=== PATIENT | female | born 1985 | race Caucasian/White ===

== ENCOUNTER 2016-05-01 23:50 | Emergency (ER) | payer MEDICAID, SELFPAY ==
[2016-05-02] MEDS ORDERED: Sodium Chloride 0.9% 10 ML Syringe FLUSH PRN (00:18)
[2016-05-02] MEDS ORDERED: Lactated Ringers 1,000 ML IV ONE (00:18)
[2016-05-02] MEDS ORDERED: Metoclopramide 10 MG/2 ML SDV IVPUSH ONE (00:21)
[2016-05-02] MEDS ORDERED: Pantoprazole 40 MG Vial IVPUSH ONE (00:48)
[2016-05-02 02:25] VITALS: BP 123/82
--- NOTE | 2016-05-04 12:43 | ER ---
DATE SEEN: 05/01/2016 TIME SEEN: The patient was seen at 0030 hours. HISTORY OF PRESENT ILLNESS: This 30-year-old woman who is on disability for mental health, severe ADHD, and anxiety attacks, presents because she got anxious. She has frequent vomiting. She states she has had vomiting for the past 2 months (I wonder if she has cyclic vomiting). She has been followed by Dr. Kothari. She sees a specialist regarding her vomiting. She has also been on an excessive number of drugs and drugs have been slowly decreased. She has tried Lyrica for her fibromyalgia that "doesn't work". She notes that her fibromyalgia has gotten worse. In the past 2 months, she has been vomiting more off and on. She talked about having a hernia in her esophagus and also her stomach when she was 14 years old. She notes that the "Zofran doesn't do anything for nausea." Her history is fragmented, without continuity of train of thought. She does not do well with organizing her thoughts or even discussing her problems. She places a fair amount of blame on her fibromyalgia and "is not getting better". In order to resolve her upset stomach and fibromyalgia, she states she has been drinking alcohol. She notes yesterday she had 4 ounces of hard alcohol and 2 beers. This morning, she had 6 shots of alcohol to decrease her fibromyalgia. She also had been taking alcohol on and off 4 to 5 days per week in the last 2 weeks. She finds this is not helping her fibromyalgia, and now she is having difficulty eating because she is vomiting. She is not taking any medicine except for Zofran, and "the Zofran is not helping her." MEDICATIONS: 1. Venlafaxine for depression. 2. Gabapentin for pain and fibromyalgia. 3. Magnesium hydroxide. 4. Pepcid. ALLERGIES: Doxepin and ibuprofen. SOCIAL HISTORY: The patient is a smoker. The patient is not . The patient has bizarre clothing, composition. She had a total of 7 facial piercings that maker her fact look grotesque and bizarre. PHYSICAL EXAMINATION: HEENT: PERRLA intact. Pharynx without abnormality. NECK: Supple. LUNGS: Clear to auscultation. HEART: S1, S2. No murmur. ABDOMEN: Soft. No guarding. Has mild midepigastric abdominal discomfort. No back pain. EXTREMITIES: Without edema. Deep tendon reflexes normoactive in upper and lower extremities. NEUROLOGIC: Cranial nerves 2 through 12 intact and oriented x3. Gait appropriate. LABORATORY DATA: Today's white count is 12,200 with normal PMNs of 64, lymphs 26, monos 6, platelets 271,000, hemoglobin 15.6, the latter is elevated. Large occult blood is noted in the urine. Moderate mucus and few bacteria. Negative hCG. Negative drug screen test except for marijuana. The patient denies using synthetic marijuana and alcohol is less than 0.01. She was advised that the only way to manage her fibromyalgia was exercise. She has had physical therapy in the past, but has not been there because she has "been too sick for the last 2 months," but she recently started physical therapy a week ago. Also, she has been advised that her biorhythms have been disrupted because of her very inappropriate sleep pattern. She goes to bed at 3 o'clock in the morning and gets up at 7 or 8 in the morning when her significant other comes home. She spends time awake until noon and then goes back to bed during the afternoon. She is also encouraged to consider a rheumatology consultation regarding her fibromyalgia if she is not getting better. Follow up with her doctor in 1 week. No medications prescribed. ADDITIONAL FINDINGS: Blood in the urine; question if this is secondary to menses. Ketonuria is secondary to decreased p.o. calorie intake and also use of marijuana. It is not clear how much marijuana she is using, but marijuana can also cause gastric upset, irritation, and she is encouraged to desist from using marijuana and other drugs and also desist from such poor sleep pattern and improve her sleep hygiene by seeking different hours since she currently is sleeping at different hours. Get more sleep. The patient was seen at 0020 hours (midnight). /[id number] TIMOTHY/KISHOR HDZ
--- NOTE | 2016-05-15 03:49 | ER ---
DATE SEEN: 05/01/2016 ADDENDUM: DIAGNOSES: 1. Anxiety disorder. 2. Grotesque facial piercings. 3. Overweight. 4. Probable abdominal discomfort secondary to marijuana use upsetting her stomach. 5. Sleep dysfunction. 6. Fibromyalgia. 7. Microhematuria, etiology indeterminate. 8. Smoking disorder. /[id number] TIMOTHY/KYLERL
== END 2016-05-02 01:50 | disposition home or self-care (01) ==
LOC: FB.ED 23:50
DX: F41.9 Anxiety disorder, unspecified (principal); E66.3 Overweight; F12.90 Cannabis use, unspecified, uncomplicated; M79.7 Fibromyalgia; R31.29 Other microscopic hematuria; R10.9 Unspecified abdominal pain; F17.200 Nicotine dependence, unspecified, uncomplicated; Z88.6 Allergy status to analgesic agent; Z88.8 Allergy status to other drugs, medicaments and biological substances; Z79.899 Other long term (current) drug therapy
CPT/HCPCS: 36415; 80305; 81001; 81025; 85025; 96361; 96374; 96375; 99284; C9113; G0480; J2765; J7050; J7120

== ENCOUNTER 2017-07-06 07:49 | Day surgery (SDC) | payer MEDICAID, OTHER, SELFPAY ==
[~2017-07-06 07:49] MED LIST: Lactated Ringers 1,000 ML IV SCH; Sodium Chloride 0.9% 10 ML Syringe FLUSH PRN
[2017-07-06] MEDS ORDERED: Lactated Ringers 1,000 ML IV ONE (09:15)
[2017-07-06] MEDS ORDERED: Midazolam 1 MG/ML 2 ML SDV IV ONE (09:15)
[2017-07-06] MEDS ORDERED: Propofol 200 MG/20 ML SDV IV ONE (09:15)
--- NOTE | 2017-07-06 10:02 | PCM.OPNOTE ---
- General Post-Op/Procedure Note Date of Surgery/Procedure: 07/06/17 Operative Procedure(s): egd with bx. c scope with bx Findings: gastritis irregular z line normal colon rectal polyp Pre Op Diagnosis: nausea. diarrhea Post-Op Diagnosis: gastritis. irregular z line. normal colon. rectal polyp Anesthesia Technique: [facility] [place] Primary Surgeon: Augusto Esquivel Anesthesia Provider: Sachin Vazquez Pathology: stomach, esophagus random colon biopsies rectal polyp Complications: None Condition: Good Free Text/Narrative:: see dictation
[2017-07-06 10:37] VITALS: BP 110/75
--- NOTE | 2017-07-06 11:38 | OR ---
DATE OF OPERATION: 07/06/2017 SURGEON: Augusto Esquivel MD PROCEDURES PERFORMED: EGD and colonoscopy with cold forceps biopsy. PREOPERATIVE DIAGNOSES: History of abdominal pain, nausea, and diarrhea. POSTOPERATIVE DIAGNOSES: Normal colonoscopy, except for a rectal polyp and gastritis. INDICATIONS FOR PROCEDURE: This is a 32-year-old white female who was referred with the above-mentioned complaints. DESCRIPTION OF PROCEDURE: After an excellent IV sedation was administered, the bite block was inserted. The flexible endoscope was passed without difficulty down the patient's esophagus and into the stomach. The stomach was insufflated. Scope was passed through the pylorus, down to the second portion of the duodenum, and slowly withdrawn. The following findings were noted. Duodenum unremarkable. Stomach, mild gastritis and biopsies were taken. Distal esophagus, regular Z-line. Remainder of the esophageal exam was unremarkable. The stomach was deflated. Scope was removed. Our attention was turned to the colon. Digital rectal exam was performed. No marked abnormality was noted. Flexible colonoscope was then inserted and advanced to the cecum without difficulty. The prep was excellent. The following findings were noted. Ascending colon, unremarkable. Random biopsies were taken. Transverse colon, unremarkable. Random biopsies were taken. Descending colon and sigmoid, unremarkable. Random biopsies were taken. In the rectum, there was a small hyperplastic-appearing polyp, biopsied with cold biopsy forceps, and sent for permanent. Colon was deflated as the scope was removed. The patient tolerated the procedure well and was taken to Recovery in a good condition. /[id number] /MODL
== END 2017-07-06 10:41 | disposition home or self-care (01) ==
LOC: FB.SDS 07:49
PROVIDERS: ATTEND Surgery
DX: K62.1 Rectal polyp (principal); K29.50 Unspecified chronic gastritis without bleeding; K20.9 Esophagitis, unspecified; J45.909 Unspecified asthma, uncomplicated; E66.9 Obesity, unspecified; F41.0 Panic disorder [episodic paroxysmal anxiety]; F41.1 Generalized anxiety disorder; Z79.899 Other long term (current) drug therapy; Z88.1 Allergy status to other antibiotic agents; Z88.8 Allergy status to other drugs, medicaments and biological substances; Z91.048 Other nonmedicinal substance allergy status
CPT/HCPCS: 81025; 88305; 88313; 88342; J2250; J2704; J7120

== ENCOUNTER 2017-07-30 16:12 | Emergency (ER) | payer MEDICAID ==
[2017-07-30] MEDS ORDERED: diphenhydrAMINE 50 MG Cap PO ONE (16:25)
[2017-07-30] MEDS ORDERED: methylPREDNISolone Sodium Succinate 125 MG/2 ML SDV IM ONE (16:25)
--- NOTE | 2017-07-30 18:18 | EDM.PDOC ---
ED HPI GENERAL MEDICAL PROBLEM - General Chief Complaint: Allergic Reaction Stated Complaint: ALLERGIC REACTION Time Seen by Provider: 07/30/17 16:12 Source of Information: Reports: Patient, Family History Limitations: Reports: No Limitations - History of Present Illness INITIAL COMMENTS - FREE TEXT/NARRATIVE: 32 y.o.w.f came with her SO the the ed 1 days after she applied a special hair dye and noticed this morning her face is swollen. Pt has heavy pearsing of her face and had facial cellulitis in the past. She was on ABx till a few days ago. Pt is aware of her nickel allergy. No N/V/D of SOB or any other acute medical issues. BP 119/86 Pulse 104 Temp 98.32 O2 sat 100% on RA RR 18 Onset Date: 07/30/17 Onset Time: 08:32 Duration: Hour(s): Location: Reports: Face Quality: Reports: Burning, Dull Severity: Mild Improves with: Reports: Cold Therapy Worsens with: Reports: Other (hairdye) - Related Data Allergies Allergy/AdvReac Type Severity Reaction Status Date / Time doxepin Allergy Difficulty Verified 07/06/17 08:17 Swallowing ibuprofen Allergy Swelling Verified 07/06/17 08:17 nickel Allergy Rash Verified 07/06/17 08:17 Home Meds: Home Meds Ondansetron [Zofran ODT] 4 mg PO Q6H PRN #14 tab.dis 03/05/16 [Rx] Albuterol [Ventolin HFA] 1 - 2 puff INH Q4H PRN 07/05/17 [History] Etonogestrel [Nexplanon] 68 mg SQ ASDIRECTED 07/05/17 [History] Gabapentin [Neurontin] 300 mg PO QID 07/05/17 [History] L.acidoph,Paracasei, B.lactis [Probiotic] 1 each PO DAILY 07/05/17 [History] Omeprazole Magnesium [Prilosec Otc] 20 mg PO DAILY #30 tablet. 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 Musculoskeletal History: Reports: Fibromyalgia Neurological History: Reports: None Psychiatric History: Reports: ADHD, Addiction, Anxiety, Depression, Schizophrenia, Other (See Below) Other Psychiatric History: Mood disorder Endocrine/Metabolic History: Hematologic History: Reports: None Immunologic History: Reports: None Oncologic (Cancer) History: Reports: None Dermatologic History: Reports: None - Past Surgical History Head Surgeries/Procedures: Reports: None HEENT Surgical History: Reports: None GI Surgical History: Reports: None Social & Family History - Family History Family Medical History: Noncontributory - Tobacco Use Smoking Status *Q: Current Every Day Smoker Years of Tobacco use: 20 Packs/Tins Daily: 0.5 - Caffeine Use Caffeine Use: Reports: None - Alcohol Use Number of Drinks Per Day: 3 - Recreational Drug Use Recreational Drug Use: Yes Recreational Drug Type: Reports: Marijuana/Hashish Recreational Drug Use Frequency: Rarely - Living Situation & Occupation Living situation: Reports: Single, with Family Occupation: Disabled ED ROS ALLERGIC REACTION - Review of Systems Review Of Systems: See Below Constitutional: Reports: No Symptoms HEENT: Reports: Other (facial swelling, severly facial piercing, risc of cellulitis) Respiratory: Reports: No Symptoms Cardiovascular: Reports: No Symptoms Endocrine: Reports: No Symptoms GI/Abdominal: Reports: No Symptoms : Reports: No Symptoms Musculoskeletal: Reports: No Symptoms Skin: Reports: No Symptoms Neurological: Reports: No Symptoms Psychiatric: Reports: No Symptoms Hematologic/Lymphatic: Reports: No Symptoms Immunologic: Reports: No Symptoms ED EXAM GENERAL NO PERIP PULSE - Physical Exam Exam: See Below Exam Limited By: No Limitations General Appearance: Alert, WD/WN, Mild Distress Eye Exam: Bilateral Eye: Normal Inspection Ears: Normal External Exam, Normal Canal, Hearing Grossly Normal Nose: Normal Inspection, Normal Mucosa, No Blood Throat/Mouth: Normal Inspection, Normal Lips, Normal Teeth, Normal Gums, Normal Oropharynx, Normal Voice, No Airway Compromise Head: Atraumatic, Facial Swelling, Facial Tenderness, Other (heavy piercing) Neck: Normal Inspection, Supple, Non-Tender, Full Range of Motion Respiratory/Chest: No Respiratory Distress, Lungs Clear, Normal Breath Sounds, Chest Non-Tender Cardiovascular: Normal Peripheral Pulses, Regular Rate, Rhythm, No Edema, No Gallop, No JVD, No Murmur, No Rub GI/Abdominal: Normal Bowel Sounds, Soft, Non-Tender, No Organomegaly, No Distention, No Abnormal Bruit, No Mass, Pelvis Stable (Female) Exam: Deferred Rectal (Female) Exam: Deferred Back Exam: Normal Inspection, Full Range of Motion Extremities: Normal Inspection, Normal Range of Motion, Non-Tender, No Pedal Edema, Normal Capillary Refill Neurological: Alert, Oriented, CN II-XII Intact, Normal Cognition, Normal Gait, No Motor/Sensory Deficits Psychiatric: Normal Affect, Normal Mood Skin Exam: Warm, Dry, Normal Color, Rash (facial), Piercing(s) Lymphatic: No Adenopathy Course - Vital Signs Text/Narrative:: 32 y.o.w.f came with her SO the the ed 1 days after she applied a special hair dye and noticed this morning her face is swollen. Pt has heavy pearsing of her face and had facial cellulitis in the past. She was on ABx till a few days ago. Pt is aware of her nickel allergy. No N/V/D of SOB or any other acute medical issues. BP 119/86 Pulse 104 Temp 98.32 O2 sat 100% on RA RR 18 PE: Minor facial swelling with heavy piercing, no local facial cellulitis. Impression: Facial swelling, minor due to hair dye allergy, facial piercing, possible facial cellulitis Was/is on ABx Tx: Benadryl, Solumedrol Reexam: Improved, pt refused Abx, because finished she dose a few days ago Plan: D/C with instructions - Orders/Labs/Meds Orders: Active Orders 24 hr Category Date Time Status Cooling Warming Measures [RC] ASDIRECTED Care 07/30/17 16:25 Active Ice Bag [Ice Therapy] [OM.PC] Routine Oth 07/30/17 16:25 Ordered Labs: Laboratory Tests 07/30/17 Range/Units 18:15 NT-Pro-B Natriuret Pep 12 (<=125) pg/mL Meds: Medications Discontinued Medications Generic Name Dose Route Start Last Admin Trade Name Freq PRN Reason Stop Dose Admin Diphenhydramine HCl 50 mg 07/30/17 16:25 07/30/17 16:31 Benadryl PO 07/30/17 16:26 50 mg ONETIME ONE Administration Methylprednisolone Sodium Succinate 125 mg 07/30/17 16:25 07/30/17 16:32 Solu-Medrol IM 07/30/17 16:26 125 mg ONETIME ONE Administration Departure - Departure Time of Disposition: 18:23 Disposition: Home, Self-Care 01 Condition: Good Clinical Impression: Facial swelling, Infected pierced face Dye allergic reaction Qualifiers: Encounter type: initial encounter Qualified Code(s): T50.995A - Adverse effect of other drugs, medicaments and biological substances, initial encounter - Discharge Information Prescriptions: predniSONE [Prednisone] 20 mg PO DAILY #3 tablet Instructions: Allergies, Adult, [id number], Diphenhydramine capsules or tablets, Methylprednisolone Solution for Injection, Prednisolone tablets Referrals: Jordon Carrasquillo MD [Primary Care Provider] - Forms: ED Department Discharge Additional Instructions: Please take Prednisone, Benadryl for your allergy to hair dye. Please f/u with your PMD, please come back to the ed if your symptoms get worse acutely. Your facial piercing is a risk for cellulites. - My Orders Last 24 Hours: My Active Orders 07/30/17 16:25 Cooling Warming Measures [RC] ASDIRECTED Ice Bag [Ice Therapy] [OM.PC] Routine - Assessment/Plan Last 24 Hours: My Active Orders 07/30/17 16:25 Cooling Warming Measures [RC] ASDIRECTED Ice Bag [Ice Therapy] [OM.PC] Routine
[2017-07-30 19:34] VITALS: BP 130/82
== END 2017-07-30 19:00 | disposition home or self-care (01) ==
LOC: FB.ED 16:12
DX: R22.0 Localized swelling, mass and lump, head (principal); L08.9 Local infection of the skin and subcutaneous tissue, unspecified; T49.4X5A Adverse effect of keratolytics, keratoplastics, and other hair treatment drugs and preparations, initial encounter; F17.210 Nicotine dependence, cigarettes, uncomplicated; Z88.8 Allergy status to other drugs, medicaments and biological substances; Z88.6 Allergy status to analgesic agent; Z91.048 Other nonmedicinal substance allergy status; Z79.899 Other long term (current) drug therapy
CPT/HCPCS: 36415; 83880; 96372; 99283; A9270-GY; J2930

== ENCOUNTER 2017-12-09 04:24 | Emergency (ER) | payer MEDICAID ==
--- NOTE | 2017-12-09 05:58 | EDM.PDOC ---
ED HPI GENERAL MEDICAL PROBLEM - General Chief Complaint: Abdominal Pain Stated Complaint: abdominal pain Time Seen by Provider: 12/09/17 05:54 Source of Information: Reports: Patient - History of Present Illness INITIAL COMMENTS - FREE TEXT/NARRATIVE: Karissa is a 32-year-old female complaining of abdominal pain. The pain lasted 30 minutes before sure that the ER and then resolved. Exposing the epigastrium but attributes to both right and left upper quadrants. Associated nausea but no vomiting or diarrhea. She has a history of peptic ulcer disease, gastric bypass. - Related Data Allergies Allergy/AdvReac Type Severity Reaction Status Date / Time diphenhydramine Allergy Other Verified 12/09/17 05:56 [From Benadryl] doxepin Allergy Difficulty Verified 12/09/17 04:50 Swallowing ibuprofen Allergy Swelling Verified 12/09/17 04:50 nickel Allergy Rash Verified 12/09/17 04:50 Home Meds: Home Meds Albuterol [Ventolin HFA] 1 - 2 puff INH Q4H PRN 07/05/17 [History] Etonogestrel [Nexplanon] 68 mg SQ ASDIRECTED 07/05/17 [History] Vitamin B Complex 1 tab PO DAILY 07/30/17 [History] .Takes Natural Supplements 12/09/17 [History] Permethrin 60 gm TOP ONETIME #1 tube 12/09/17 [Rx] Past Medical History HEENT History: Reports: None Cardiovascular History: Reports: Other (See Below) Other Cardiovascular History: History of palpitations. Respiratory History: Reports: Asthma Gastrointestinal History: Reports: GERD, Hiatal Hernia, Other (See Below) Other Gastrointestinal History: History of gastric ulcer and esophagel hernia. 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 Insomia. Endocrine/Metabolic History: Hematologic History: Reports: None Immunologic History: Reports: None Oncologic (Cancer) History: Reports: None Dermatologic History: Reports: Other (See Below) Other Dermatologic History: States her toenails are "bumpy". - Past Surgical History Head Surgeries/Procedures: Reports: None HEENT Surgical History: Reports: None GI Surgical History: Reports: None Social & Family History - Family History Family Medical History: Noncontributory - Tobacco Use Smoking Status *Q: Current Every Day Smoker Years of Tobacco use: 20 Packs/Tins Daily: 0.5 - Caffeine Use Caffeine Use: Reports: None - Alcohol Use Days Per Week of Alcohol Use: 7 Number of Drinks Per Day: 6 Total Drinks Per Week: 42 - Recreational Drug Use Recreational Drug Use: No Other Recreational Drug Type: Patient denies recreational drug use. - Living Situation & Occupation Living situation: Reports: Single, with Family Occupation: Disabled ED ROS GENERAL - Review of Systems Review Of Systems: See Below Skin: Reports: Pruritis, Rash ED EXAM, GI/ABD - Physical Exam Exam: See Below Exam Limited By: No Limitations General Appearance: Alert, WD/WN, No Apparent Distress Throat/Mouth: Normal Inspection, Normal Lips, Normal Teeth, Normal Gums, Normal Oropharynx, Normal Voice, No Airway Compromise Respiratory/Chest: No Respiratory Distress, Lungs Clear, Normal Breath Sounds, No Accessory Muscle Use, Chest Non-Tender Cardiovascular: Normal Peripheral Pulses, Regular Rate, Rhythm, No Edema, No Gallop, No JVD, No Murmur, No Rub GI/Abdominal Exam: Normal Bowel Sounds, Soft, Non-Tender, No Organomegaly, No Distention, No Abnormal Bruit, No Mass, Pelvis Stable, Other (Findings papulovesicular rash noted in the abdominal area) Course - Vital Signs Last Recorded V/S: Last Vital Signs Temp 97.9 F 12/09/17 04:40 Pulse 93 12/09/17 04:40 Resp 14 12/09/17 04:40 BP 104/74 12/09/17 04:40 Pulse Ox 99 12/09/17 04:40 - Orders/Labs/Meds Orders: Active Orders 24 hr Category Date Time Status EKG Documentation Completion [RC] ASDIRECTED Care 12/09/17 04:45 Active Chest 2V [CR] Stat Exams 12/09/17 04:49 Taken EKG 12 Lead [EK] Routine Ther 12/09/17 04:44 Ordered Labs: Laboratory Tests 12/09/17 12/09/17 12/09/17 Range/Units 04:50 04:50 04:50 WBC 7.2 (4.5-12.0) X10-3/uL RBC 4.71 (3.23-5.20) x10(6)uL Hgb 15.2 (11.5-15.5) g/dL Hct 44.3 (30.0-51.3) % MCV 94.0 (80-96) fL MCH 32.2 (27.7-33.6) pg MCHC 34.2 (32.2-35.4) g/dL RDW 11.7 (11.5-15.5) % Plt Count 302 (125-369) X10(3)uL MPV 7.4 (7.4-10.4) fL Neut % (Auto) 40.2 L (46-82) % Lymph % (Auto) 46.4 H (13-37) % [place] % (Auto) 5.2 (4-12) % Eos % (Auto) 7 H (1.0-5.0) % Baso % (Auto) 1 (0-2) % Neut # (Auto) 2.9 (1.6-8.3) # Lymph # (Auto) 3.3 (0.6-5.0) # [place] # (Auto) 0.4 (0.0-1.3) # Eos # (Auto) 0.5 (0.0-0.8) # Baso # (Auto) 0.1 (0.0-0.2) # D-Dimer, Quantitative (0.0-0.59) mg/LFEU Sodium 139 (135-145) mmol/L Potassium 3.9 (3.5-5.3) mmol/L Chloride 105 (100-110) mmol/L Carbon Dioxide 19 L (21-32) mmol/L BUN 14 (7-18) mg/dL Creatinine 0.9 (0.55-1.02) mg/dL Est Cr Clr Drug Dosing TNP Estimated GFR (MDRD) > 60 (>60) BUN/Creatinine Ratio 15.6 (9-20) Glucose 95 (80-116) mg/dL Calcium 8.3 L (8.6-10.2) mg/dL Total Bilirubin 0.5 (0.1-1.3) mg/dL AST 72 H (5-25) IU/L ALT 54 H (12-36) U/L Alkaline Phosphatase 74 (56-112) IU/L Troponin I < 0.017 L (<0.017-0.056) ng/mL Total Protein 7.3 (6.0-8.0) g/dL Albumin 3.1 L (3.5-5.2) g/dL Globulin 4.2 g/dL Albumin/Globulin Ratio 0.7 12/09/17 Range/Units 04:50 WBC (4.5-12.0) X10-3/uL RBC (3.23-5.20) x10(6)uL Hgb (11.5-15.5) g/dL Hct (30.0-51.3) % MCV (80-96) fL MCH (27.7-33.6) pg MCHC (32.2-35.4) g/dL RDW (11.5-15.5) % Plt Count (125-369) X10(3)uL MPV (7.4-10.4) fL Neut % (Auto) (46-82) % Lymph % (Auto) (13-37) % [place] % (Auto) (4-12) % Eos % (Auto) (1.0-5.0) % Baso % (Auto) (0-2) % Neut # (Auto) (1.6-8.3) # Lymph # (Auto) (0.6-5.0) # [place] # (Auto) (0.0-1.3) # Eos # (Auto) (0.0-0.8) # Baso # (Auto) (0.0-0.2) # D-Dimer, Quantitative 0.24 (0.0-0.59) mg/LFEU Sodium (135-145) mmol/L Potassium (3.5-5.3) mmol/L Chloride (100-110) mmol/L Carbon Dioxide (21-32) mmol/L BUN (7-18) mg/dL Creatinine (0.55-1.02) mg/dL Est Cr Clr Drug Dosing Estimated GFR (MDRD) (>60) BUN/Creatinine Ratio (9-20) Glucose (80-116) mg/dL Calcium (8.6-10.2) mg/dL Total Bilirubin (0.1-1.3) mg/dL AST (5-25) IU/L ALT (12-36) U/L Alkaline Phosphatase (56-112) IU/L Troponin I (<0.017-0.056) ng/mL Total Protein (6.0-8.0) g/dL Albumin (3.5-5.2) g/dL Globulin g/dL Albumin/Globulin Ratio Departure - Departure Time of Disposition: 05:56 Disposition: Home, Self-Care 01 Clinical Impression: Abdominal pain - Discharge Information Prescriptions: Permethrin 60 gm TOP ONETIME #1 tube Referrals: Jordon Carrasquillo MD [Primary Care Provider] - - Problem List & Annotations (1) Abdominal pain SNOMED Code(s): 49765037 Code(s): R10.9 - UNSPECIFIED ABDOMINAL PAIN Status: Acute Current Visit: Yes Qualifiers: Abdominal location: epigastric Qualified Code(s): R10.13 - Epigastric pain (2) Scabies SNOMED Code(s): 307174157, 953723222 Code(s): B86 - SCABIES Status: Acute Current Visit: Yes - Problem List Review Problem List Initiated/Reviewed/Updated: Yes - My Orders Last 24 Hours: My Active Orders 12/09/17 04:44 EKG 12 Lead [EK] Routine 12/09/17 04:45 EKG Documentation Completion [RC] ASDIRECTED 12/09/17 04:49 Chest 2V [CR] Stat - Assessment/Plan Last 24 Hours: My Active Orders 12/09/17 04:44 EKG 12 Lead [EK] Routine 12/09/17 04:45 EKG Documentation Completion [RC] ASDIRECTED 12/09/17 04:49 Chest 2V [CR] Stat Plan: The reason for abdominal pain is unclear. A chest x-ray EKG were all negative. I suspect either PUD or gallbladder disease. I will discharge her home and have a follow-up next week in the office. The rash and abdominal wall suspicious for scabies. A prescription for permethrin will be sent to the pharmacy.
[2017-12-09 06:13] VITALS: BP 111/80
--- NOTE | 2017-12-09 15:00 | CR ---
INDICATION: Anterior lower chest pain - sudden lower chest pain, upper abdominal pain, waking the patient out of a sleep. CHEST: PA and lateral views of the chest were obtained 12/09/2017 and compared with 12/26/2014. The heart, mediastinum, and bony thorax were unremarkable, as previously. An active infiltrate or effusion was not identified. There does appear to be prominent AP diameter and slightly increased flattening of diaphragm leaves, raising question of obstructive airway disease. This should be correlated clinically. IMPRESSION: 1. No definite acute process. 2. Exacerbation of or possibly progressive obstructive airway disease - correlate clinically. MTDD
== END 2017-12-09 06:15 | disposition home or self-care (01) ==
LOC: FB.ED 04:24
DX: R10.13 Epigastric pain (principal); R10.11 Right upper quadrant pain; R10.12 Left upper quadrant pain; R23.8 Other skin changes; F17.210 Nicotine dependence, cigarettes, uncomplicated; Z79.899 Other long term (current) drug therapy; Z88.8 Allergy status to other drugs, medicaments and biological substances
CPT/HCPCS: 36415; 71046; 80053; 84484; 85025; 85379; 93005; 99284

== ENCOUNTER 2022-08-03 19:26 | Emergency (ER) | payer MEDICAID, OTHER ==
[2022-08-03 19:56] VITALS: BP 151/100; PULSE 96
[2022-08-03] MEDS ORDERED: Sodium Chloride 0.9% 10 ML Syringe FLUSH PRN (20:05)
[2022-08-03] MEDS: cefTRIAXone 2 GM Vial IVPUSH ONE (20:13)
[2022-08-03 20:20] LABS: BASOPHILS ABSOLUTE AUTO 0.1 x10-3/uL (0.0-0.1); BASOPHILS PERCENT AUTO 0.6 % (0.2-1.5); EOSINOPHILS ABSOLUTE AUTO 0.4 x10-3/uL (0.0-0.8); EOSINOPHILS PERCENT AUTO 4.2 % (0.6-8.1); HEMATOCRIT 40.5 % (34.2-48.2); HEMOGLOBIN 13.9 g/dL (11.4-15.5); LYMPHOCYTES ABSOLUTE AUTO 2.9 x10-3/uL (1.0-4.4); LYMPHOCYTES PERCENT AUTO 34.5 % (18.4-52.1); MEAN CORPUSCULAR HEMOGLOBIN 31.3 pg (23.9-33.9); MEAN CORPUSCULAR HGB CONC 34.3 g/dL (31.9-34.8); MEAN CORPUSCULAR VOLUME 91.2 fL (76.7-100.5); MEAN PLATELET VOLUME 7.2 fL (7.1-12.4); MONOCYTES ABSOLUTE AUTO 0.6 x10-3/uL (0.3-1.0); MONOCYTES PERCENT AUTO 6.5 % (4.4-15.7); NEUTROPHILS ABSOLUTE AUTO 4.6 x10-3/uL (1.5-6.3); NEUTROPHILS PERCENT AUTO 54.2 % (30.8-76.2); PLATELET COUNT,PLT 350 x10(3)uL (151-488); RED BLOOD CELL COUNT 4.44 x10(6)uL (3.60-5.20); RED CELL DISTRIBUTION WIDTH 13.3 % (12.3-16.5); WHITE BLOOD CELL COUNT,WBC 8.5 x10-3/uL (3.0-10.3)
[2022-08-03 20:22] LABS: BLOOD UREA NITROGEN,BUN 8 mg/dL (7-18); CALCIUM 8.8 mg/dL (8.6-10.2); CARBON DIOXIDE,CO2 24 mmol/L (21-32); CHLORIDE,CL 106 mmol/L (100-110); CREATININE 0.8 mg/dL (0.55-1.02); EST CRCL DRUG DOSING (CG) 86.64 mL/min; ESTIMATED GFR 97 mL/min (>60); GLUCOSE RANDOM 87 mg/dL (80-116); POTASSIUM,K 3.4 mmol/L (3.5-5.3); SODIUM,NA 139 mmol/L (135-145)
[2022-08-03] MEDS: Potassium Chloride 20 MEQ Tab.ER PO ONE (20:29)
== END 2022-08-03 20:35 | disposition home or self-care (01) ==
LOC: FB.ED 19:26
DX: L03.115 Cellulitis of right lower limb (principal); E87.6 Hypokalemia; J45.909 Unspecified asthma, uncomplicated; Z88.8 Allergy status to other drugs, medicaments and biological substances
CPT/HCPCS: 36415; 80048; 81025; 85025; 96374; 99283; A9270; J0696

== ENCOUNTER 2022-09-19 22:05 | Emergency (ER) | payer OTHER ==
[2022-09-19 23:58] LABS: APPEARANCE,URINE CLOUDY (CLEAR); BACTERIA,URINE MANY (NS); BILIRUBIN,URINE NEGATIVE (NEGATIVE); COLOR,URINE YELLOW (YELLOW); GLUCOSE,URINE NORMAL (NORMAL); KETONES,URINE NEGATIVE (NEGATIVE); LEUKOCYTE ESTERASE,URINE NEGATIVE (NEGATIVE); NITRITE,URINE POSITIVE (NEGATIVE); OCCULT BLOOD,URINE NEGATIVE (NEGATIVE); PROTEIN,URINE NEGATIVE (NEGATIVE); RBC,URINE 0-5 (0-5); SQUAMOUS EPITHELIAL CELLS,UR MODERATE (NS,R,O); UROBILINOGEN,URINE NORMAL (NEGATIVE); WBC,URINE 0-5 (0-5)
[2022-09-20 00:15] VITALS: BP 124/94; PULSE 100
[2022-09-22 02:09] LABS: CHLAMYDIA TRACHOMATIS, NAA Negative (Negative); NEISSERIA GONORRHOEAE, NAA Negative (Negative)
[2022-09-22 18:13] LABS: HIV-1 RNA BY PCR <20 copies/mL (.)
== END 2022-09-20 00:10 | disposition home or self-care (01) ==
LOC: FB.ED 22:20
DX: T74.21XA Adult sexual abuse, confirmed, initial encounter (principal); N39.0 Urinary tract infection, site not specified; J45.909 Unspecified asthma, uncomplicated; Z79.899 Other long term (current) drug therapy; Z88.6 Allergy status to analgesic agent; Z88.8 Allergy status to other drugs, medicaments and biological substances; Z91.048 Other nonmedicinal substance allergy status
CPT/HCPCS: 36415; 81001; 86317; 86803; 87491; 87536; 87591; 87661; 99284

== ENCOUNTER 2022-11-29 07:58 | Emergency (ER) | payer OTHER ==
[2022-11-29] MEDS ORDERED: LORazepam 2 MG/ML SDV IM PRN (08:13)
[2022-11-29] MEDS ORDERED: OLANZapine 10 MG Vial IM ONE (08:13)
[2022-11-29 08:55] VITALS: BP 146/101; PULSE 106
== END 2022-11-29 08:34 | disposition home or self-care (01) ==
LOC: FB.ED 07:58
DX: F41.0 Panic disorder [episodic paroxysmal anxiety] (principal); I10 Essential (primary) hypertension; K21.9 Gastro-esophageal reflux disease without esophagitis; J45.909 Unspecified asthma, uncomplicated; Z88.8 Allergy status to other drugs, medicaments and biological substances
CPT/HCPCS: 96372; 99283; J2060; J2405

== ENCOUNTER 2023-01-09 18:43 | Emergency (ER) | payer OTHER ==
[2023-01-09] MEDS ORDERED: Ondansetron 4 MG Tab.DIS PO ONE (19:37)
[2023-01-09 19:38] LABS: BASOPHILS ABSOLUTE AUTO 0.1 x10-3/uL (0.0-0.1); BASOPHILS PERCENT AUTO 1.3 % (0.2-1.5); EOSINOPHILS ABSOLUTE AUTO 0.7 x10-3/uL (0.0-0.8); EOSINOPHILS PERCENT AUTO 7.2 % (0.6-8.1); HEMATOCRIT 44.1 % (34.2-48.2); HEMOGLOBIN 15.4 g/dL (11.4-15.5); LYMPHOCYTES ABSOLUTE AUTO 4.3 x10-3/uL (1.0-4.4); LYMPHOCYTES PERCENT AUTO 41.3 % (18.4-52.1); MEAN CORPUSCULAR HEMOGLOBIN 32.4 pg (23.9-33.9); MEAN CORPUSCULAR VOLUME 92.7 fL (76.7-100.5); MEAN PLATELET VOLUME 6.8 fL (7.1-12.4); MONOCYTES ABSOLUTE AUTO 0.8 x10-3/uL (0.3-1.0); MONOCYTES PERCENT AUTO 7.4 % (4.4-15.7); NEUTROPHILS ABSOLUTE AUTO 4.4 x10-3/uL (1.5-6.3); NEUTROPHILS PERCENT AUTO 42.8 % (30.8-76.2); PLATELET COUNT,PLT 459 x10(3)uL (151-488); RED BLOOD CELL COUNT 4.75 x10(6)uL (3.60-5.20); RED CELL DISTRIBUTION WIDTH 13.2 % (12.3-16.5); WHITE BLOOD CELL COUNT,WBC 10.3 x10-3/uL (3.0-10.3)
[2023-01-09 19:41] LABS: BLOOD UREA NITROGEN,BUN 13 mg/dL (7-18); BUN/CREATININE RATIO 16.3 (9-20); CALCIUM 8.3 mg/dL (8.6-10.2); CARBON DIOXIDE,CO2 24 mmol/L (21-32); CHLORIDE,CL 106 mmol/L (100-110); CREATININE 0.8 mg/dL (0.55-1.02); EST CRCL DRUG DOSING (CG) 86.64 mL/min; ESTIMATED GFR 97 mL/min (>60); GLUCOSE RANDOM 107 mg/dL (80-116); POTASSIUM,K 3.9 mmol/L (3.5-5.3); SODIUM,NA 140 mmol/L (135-145)
[2023-01-09 19:50] LABS: C-REACTIVE PROTEIN < 0.05 mg/dL (<0.33)
[2023-01-09 19:51] LABS: AMPHETAMINES SCREEN, URINE NEGATIVE (NEGATIVE); BARBITURATE SCREEN,URINE NEGATIVE (NEGATIVE); BENZODIAZEPINES SCREEN,URINE NEGATIVE (NEGATIVE); BUPRENORPHINE SCREEN,URINE NEGATIVE (NEGATIVE); METHADONE SCREEN, URINE NEGATIVE (NEGATIVE); METHAMPHETAMINE SCREEN, URINE NEGATIVE (NEGATIVE); OXYCODONE SCREEN,URINE NEGATIVE (NEGATIVE); THC SCREEN,URINE NEGATIVE (NEGATIVE)
[2023-01-09 19:51] LABS: ETHANOL BLOOD MEDICAL 0.28 % (<0.03)
[2023-01-09] MEDS ORDERED: Ketorolac 30 MG/ML SDV IM ONE (19:54)
[2023-01-09 20:38] VITALS: BP 130/74; PULSE 87
== END 2023-01-09 20:19 | disposition home or self-care (01) ==
LOC: FB.ED 18:43
DX: M79.7 Fibromyalgia (principal); F10.10 Alcohol abuse, uncomplicated; F17.210 Nicotine dependence, cigarettes, uncomplicated; J45.909 Unspecified asthma, uncomplicated; Z79.899 Other long term (current) drug therapy; Z88.8 Allergy status to other drugs, medicaments and biological substances; Z91.048 Other nonmedicinal substance allergy status
CPT/HCPCS: 36415; 80048; 80307; 85025; 86140; 96372; 99283; 99284; J1885; Q0162

== ENCOUNTER 2023-01-10 07:15 | Emergency (ER) | payer OTHER ==
[2023-01-10] MEDS ORDERED: methylPREDNISolone Sodium Succinate 125 MG/2 ML SDV IM ONE (08:02)
== END 2023-01-10 07:20 ==
LOC: FB.ED 07:15
DX: Z53.21 Procedure and treatment not carried out due to patient leaving prior to being seen by health care provider (principal)

== ENCOUNTER 2023-01-10 11:21 | Emergency (ER) | payer OTHER ==
[2023-01-10] MEDS ORDERED: methylPREDNISolone Sodium Succinate 125 MG/2 ML SDV IM ONE (12:11)
[2023-01-10 12:39] VITALS: BP 120/77; PULSE 89
== END 2023-01-10 12:35 | disposition home or self-care (01) ==
LOC: FB.ED 11:21
DX: M79.7 Fibromyalgia (principal); F17.210 Nicotine dependence, cigarettes, uncomplicated; J45.909 Unspecified asthma, uncomplicated; Z86.16 Personal history of COVID-19; Z79.899 Other long term (current) drug therapy; Z88.8 Allergy status to other drugs, medicaments and biological substances; Z91.048 Other nonmedicinal substance allergy status
CPT/HCPCS: 96372; 99283; J2930

== ENCOUNTER 2023-01-17 15:52 | Emergency (ER) | payer OTHER ==
[2023-01-17] MEDS ORDERED: Acetaminophen/oxyCODONE 325-5 MG Tab ONE (17:23)
[2023-01-17] MEDS ORDERED: Acetaminophen/oxyCODONE 325-5 MG Tab PO PRN (17:30)
[2023-01-17] MEDS ORDERED: methylPREDNISolone 4 MG Tab 21 Tab/Dosepak PO ONE (18:04)
[2023-01-17 19:03] VITALS: BP 137/95; PULSE 93
== END 2023-01-17 18:50 | disposition home or self-care (01) ==
LOC: FB.ED 15:52
DX: M79.7 Fibromyalgia (principal); G89.29 Other chronic pain; M25.511 Pain in right shoulder; M25.512 Pain in left shoulder; J45.909 Unspecified asthma, uncomplicated; Z86.16 Personal history of COVID-19; Z88.8 Allergy status to other drugs, medicaments and biological substances; Z88.6 Allergy status to analgesic agent; Z91.048 Other nonmedicinal substance allergy status
CPT/HCPCS: 99283; A9270-GY; J7509

== ENCOUNTER 2023-01-26 08:52 | Emergency (ER) | payer OTHER ==
[2023-01-26 09:48] VITALS: BP 142/102; PULSE 97
[2023-01-26] MEDS ORDERED: Ketorolac 30 MG/ML SDV IM ONE (09:51)
== END 2023-01-26 10:10 | disposition home or self-care (01) ==
LOC: FB.ED 08:52
DX: M79.7 Fibromyalgia (principal); G89.4 Chronic pain syndrome; F17.200 Nicotine dependence, unspecified, uncomplicated; Z88.1 Allergy status to other antibiotic agents; Z88.8 Allergy status to other drugs, medicaments and biological substances; Z91.048 Other nonmedicinal substance allergy status; Z88.6 Allergy status to analgesic agent; Z86.16 Personal history of COVID-19
CPT/HCPCS: 96372; 99283; J1885

== ENCOUNTER 2023-02-11 14:15 | Emergency (ER) | payer OTHER ==
[2023-02-11] MEDS ORDERED: methylPREDNISolone Sodium Succinate 125 MG/2 ML SDV IM ONE (15:03)
[2023-02-11 15:07] VITALS: BP 158/97; PULSE 99
== END 2023-02-11 15:12 | disposition home or self-care (01) ==
LOC: FB.ED 14:15
DX: L50.9 Urticaria, unspecified (principal); G89.4 Chronic pain syndrome; Z88.6 Allergy status to analgesic agent; Z88.8 Allergy status to other drugs, medicaments and biological substances; Z91.048 Other nonmedicinal substance allergy status; Z86.16 Personal history of COVID-19
CPT/HCPCS: 96372; 99283; J2930

== ENCOUNTER 2023-02-17 09:49 | Emergency (ER) | payer OTHER ==
[2023-02-17] MEDS: methylPREDNISolone Sodium Succinate 125 MG/2 ML SDV IM ONE (10:43)
[2023-02-17] MEDS: hydrOXYzine HCl 50 MG/ML SDV IM ONE (10:43)
[2023-02-17 11:55] VITALS: BP 138/99; PULSE 95
== END 2023-02-17 11:54 | disposition home or self-care (01) ==
LOC: FB.ED 09:49
DX: L50.9 Urticaria, unspecified (principal); Z86.16 Personal history of COVID-19; Z88.5 Allergy status to narcotic agent; Z88.8 Allergy status to other drugs, medicaments and biological substances; Z91.048 Other nonmedicinal substance allergy status
CPT/HCPCS: 96372; 99282; J2930; J3410

== ENCOUNTER 2023-04-30 12:05 | Emergency (ER) | payer OTHER, MEDICAID ==
[2023-04-30] MEDS ORDERED: Acetaminophen/oxyCODONE 325-5 MG Tab PO ONE (12:06)
[2023-04-30 12:21] VITALS: BP 144/101; PULSE 104
== END 2023-04-30 13:40 | disposition home or self-care (01) ==
LOC: FB.ED 12:05
DX: M79.7 Fibromyalgia (principal); Z86.16 Personal history of COVID-19; Z79.899 Other long term (current) drug therapy; Z88.8 Allergy status to other drugs, medicaments and biological substances; Z88.6 Allergy status to analgesic agent; Z91.048 Other nonmedicinal substance allergy status; Z88.1 Allergy status to other antibiotic agents
CPT/HCPCS: 99283; A9270-GY; J7509

== ENCOUNTER 2023-06-20 04:00 | Emergency (ER) | payer OTHER ==
[2023-06-20] MEDS ORDERED: Sodium Chloride 0.9% 10 ML Syringe FLUSH PRN (04:39)
[2023-06-20] MEDS: Sodium Chloride 0.9% 1,000 ML IV SCH (04:50)
[2023-06-20] MEDS: Ketorolac 30 MG/ML SDV IVPUSH ONE (04:51)
[2023-06-20] MEDS: Metoclopramide 10 MG/2 ML SDV IVPUSH ONE (04:51)
[2023-06-20] MEDS: hydrOXYzine HCl 50 MG/ML SDV IM ONE (04:54)
[2023-06-20 04:56] LABS: BASOPHILS ABSOLUTE AUTO 0.1 x10-3/uL (0.0-0.1); EOSINOPHILS ABSOLUTE AUTO 0.4 x10-3/uL (0.0-0.8); EOSINOPHILS PERCENT AUTO 5.4 % (0.6-8.1); LYMPHOCYTES ABSOLUTE AUTO 4.1 x10-3/uL (1.0-4.4); LYMPHOCYTES PERCENT AUTO 55.1 % (18.4-52.1); MEAN CORPUSCULAR HGB CONC 33.4 g/dL (31.9-34.8); MEAN PLATELET VOLUME 7.5 fL (7.1-12.4); MONOCYTES ABSOLUTE AUTO 0.4 x10-3/uL (0.3-1.0); MONOCYTES PERCENT AUTO 5.7 % (4.4-15.7); NEUTROPHILS ABSOLUTE AUTO 2.4 x10-3/uL (1.5-6.3); NEUTROPHILS PERCENT AUTO 32.8 % (30.8-76.2); PLATELET COUNT,PLT 205 x10(3)uL (151-488); RED BLOOD CELL COUNT 4.54 x10(6)uL (3.60-5.20); RED CELL DISTRIBUTION WIDTH 14.2 % (12.3-16.5); WHITE BLOOD CELL COUNT,WBC 7.4 x10-3/uL (3.0-10.3)
[2023-06-20 05:12] LABS: BLOOD UREA NITROGEN,BUN 13 mg/dL (7-18); CALCIUM 8.5 mg/dL (8.6-10.2); CARBON DIOXIDE,CO2 22 mmol/L (21-32); GLUCOSE RANDOM 87 mg/dL (80-116); SODIUM,NA 144 mmol/L (135-145)
[2023-06-20 05:13] LABS: BUN/CREATININE RATIO 16.3 (9-20); CHLORIDE,CL 107 mmol/L (100-110); CREATININE 0.8 mg/dL (0.55-1.02); EST CRCL DRUG DOSING (CG) 86.64 mL/min; ESTIMATED GFR 97 mL/min (>60); POTASSIUM,K 3.8 mmol/L (3.5-5.3)
[2023-06-20 06:04] VITALS: BP 117/82; PULSE 90
== END 2023-06-20 06:11 | disposition home or self-care (01) ==
LOC: FB.ED 04:00
DX: M79.7 Fibromyalgia (principal); F10.10 Alcohol abuse, uncomplicated; R51.9 Headache, unspecified; F17.210 Nicotine dependence, cigarettes, uncomplicated; Z88.8 Allergy status to other drugs, medicaments and biological substances; Z88.6 Allergy status to analgesic agent; Z91.048 Other nonmedicinal substance allergy status; Z79.899 Other long term (current) drug therapy; Y90.9 Presence of alcohol in blood, level not specified
CPT/HCPCS: 36415; 80048; 80307; 85025; 96372; 96374; 96375; 99284; J1885; J2765; J3410; J7030

== ENCOUNTER 2024-08-14 08:16 | Emergency (ER) | payer MEDICAID ==
[2024-08-14] MEDS: hydrOXYzine HCl 50 MG/ML SDV IM ONE (08:46)
[2024-08-14] MEDS: Ketorolac 30 MG/ML SDV IM ONE (09:26)
[2024-08-14 10:16] VITALS: BP 138/87; PULSE 90
== END 2024-08-14 09:28 | disposition home or self-care (01) ==
LOC: FB.ED 08:16
DX: G89.29 Other chronic pain (principal); F10.10 Alcohol abuse, uncomplicated; F17.200 Nicotine dependence, unspecified, uncomplicated; Z88.8 Allergy status to other drugs, medicaments and biological substances; Z91.09 Other allergy status, other than to drugs and biological substances; Z79.899 Other long term (current) drug therapy
CPT/HCPCS: 96372; 99283; 99284; J1885; J3410